=== PATIENT | male | born 1985 | race Caucasian/White ===

== ENCOUNTER 2020-06-04 16:54 | Emergency (ER) | payer OTHER, SELFPAY ==
[2020-06-04 17:06] VITALS: BP 129/73; PULSE 90; RESP 18; TEMP 36.7; O2SAT 96
[2020-06-04 17:33] VITALS: BP 124/87; PULSE 85; RESP 18; TEMP 37.2; O2SAT 95; BMI 31.3
--- NOTE | 2020-06-04 17:44 | ED_ITS ---
HPI - General Adult General Chief complaint: General Medical Stated complaint: SOB Time Seen by Provider: 06/04/20 17:44 History of Present Illness HPI narrative: Patient who was recently diagnosed with COVID and multiple family members in his household with COVID complains of worsening cough and mild shortness of breath as well as fatigue and body aches for 4 days Related Data Previous Rx's Medication Instructions Recorded azithromycin [Zithromax Z-Gerardo] 250 mg PO DAILY 5 Days #5 tab 06/04/20 dexamethasone [Decadron] 6 mg PO DAILY 5 Days #5 tab 06/04/20 Allergies Allergy/AdvReac Type Severity Reaction Status Date / Time No Known Allergies Allergy Verified 06/04/20 18:02 Review of Systems Review of Systems: Positive for mild cough, body aches, fatigue, shortness of breath There is no fever no chills no dizziness no weakness no confusion no neck pain no headache no chest pain no abdominal pain no nausea no vomiting no diarrhea no skin rash no numbness or weakness Yes all other systems are reviewed and are negative PMFSH Past Medical History Source: nursing notes reviewed Social History Social History Advance Directives: No Advance Directives Information Provided: No Physical Exam Vital Signs: Vital Signs: Last Vital Signs Temp 99.0 F 06/04/20 17:33 Pulse 85 06/04/20 17:33 Resp 18 06/04/20 17:33 BP 124/87 06/04/20 17:33 Pulse Ox 95 06/04/20 17:33 Body Mass Index 31.3 Patient is comfortable appearing, a and O x3, no acute distress cooperative speaks full sentences The pharynx is clear and well hydrated The neck is supple There is no respiratory distress, the chest is clear to auscultation bilaterally with full symmetric equal breath sounds no wheezing The heart rate and rhythm regular no murmur Abdomen soft nontender Extremities full range of motion x4, no rashes Neuro no focal deficit Course Course Course Narrative: X-ray showed patchy reticular opacities in both lungs, most likely viral but possible early atypical pneumonia so patient was put on antibiotic as well as Decadron Patient remains comfortable speaking full sentences no evidence of any respirato ry distress throughout ER visit Discharge Plan Discharge Clinical Impression: COVID-19 Patient Disposition: Home, Self-Care Additional Instructions: Testing showed you had COVID illness X-ray had typical findings of COVID We are starting an antibiotic in case there could be an early pneumonia We started Decadron which is a steroid which may reduce lung inflammation and prevent worsening of illness What might help the shortness of breath feeling the most is COVID breathing exercises Go to youtube and enter COVID breathing exercise, follow the directions in the video I showed you and this often times will bring some relief to the shortness of breath and enable you to breathe more comfortable Tylenol or Motrin for any fever or aches and pains Return to the ER any time for worsening shortness of breath or any worse condition or concerns Prescriptions: New azithromycin [Zithromax Z-Gerardo] 250 mg tablet 250 mg PO DAILY 5 Days Qty: 5 RF: 0 dexamethasone [Decadron] 6 mg tablet 6 mg PO DAILY 5 Days Qty: 5 RF: 0 Stand Alone Forms: Work/School Release Interventions: ED Discharge Assessment Last Done: 06/04/20 19:29 Discharge Date/Time: 06/04/20 19:29
--- NOTE | 2020-06-04 18:02 | XR_ITS ---
EXAMINATION: XR CHEST CLINICAL INFORMATION: Correlate. Cough. COMPARISON: None TECHNIQUE: Frontal view of the chest was obtained. FINDINGS: The lungs are hypoexpanded with patchy reticular opacities in both lung bases. The heart size and pulmonary vascularity is normal. No gross bony abnormality seen. XR/XR chest 1V IMPRESSION: Patchy reticular opacities in both lung bases. No acute process seen.
[2020-06-04] MEDS: dexAMETHasone 2 MG TABLET 10 MG PO (19:28)
== END 2020-06-04 19:29 | disposition home or self-care (01) ==
PROVIDERS: Emergency Provider Internal Medicine
DX: U07.1 COVID-19 (principal); R06.02 Shortness of breath; Z79.899 Other long term (current) drug therapy
CPT/HCPCS: 71045; 99283; J8540

== ENCOUNTER 2022-11-24 08:18 | Emergency (ER) | payer OTHER, SELFPAY ==
--- NOTE | ~2022-11-24 | XR_ITS ---
EXAMINATION: Left lower leg and ankle x-ray CLINICAL INFORMATION: Injury COMPARISON: None. TECHNIQUE: 2 views of the left lower leg and 3 views of the left ankle FINDINGS: Left lower leg: Bone alignment is normal. No fracture or dislocation. Normal joint spaces. Normal soft tissues. Left ankle: Bone alignment is normal. No fracture or dislocation. Normal ankle mortise. Normal soft tissues. Small calcaneal spur at the Achilles tendon insertion. XR/XR tibia fibula LT 2V IMPRESSION: No fracture or dislocation.
--- NOTE | ~2022-11-24 | XR_ITS ---
EXAMINATION: Left lower leg and ankle x-ray CLINICAL INFORMATION: Injury COMPARISON: None. TECHNIQUE: 2 views of the left lower leg and 3 views of the left ankle FINDINGS: Left lower leg: Bone alignment is normal. No fracture or dislocation. Normal joint spaces. Normal soft tissues. Left ankle: Bone alignment is normal. No fracture or dislocation. Normal ankle mortise. Normal soft tissues. Small calcaneal spur at the Achilles tendon insertion. XR/XR ankle LT 2V IMPRESSION: No fracture or dislocation.
[2022-11-24 08:45] VITALS: BP 96/63; PULSE 85; RESP 18; TEMP 36.8; O2SAT 98; BMI 33.9
[2022-11-24] MEDS: Ibuprofen 600 MG TABLET PO (09:02)
--- NOTE | 2022-11-24 09:29 | ED.LOWEXIN ---
HPI - Extremity Injury (Lower) General Chief Complaint: Extremity Injury, Lower Stated Complaint: Left ankle injury severe pain Time Seen by Provider: 11/24/22 09:08 History of Present Illness HPI Narrative: Patient is a 28-year-old male was playing basketball subsequently twisted and turned. Complaining of pain to the distal tib-fib area. No systemic complaints. No head injury. Not on blood thinners. Related Data Previous Rx's Medication Instructions Recorded azithromycin 250 mg tablet 250 mg PO DAILY 5 days #5 tabs 06/04/20 (Zithromax Z-Gerardo) dexamethasone 6 mg tablet 6 mg PO DAILY 5 days #5 tabs 06/04/20 (Decadron) ibuprofen 400 mg tablet 400 mg PO Q6H PRN pain #20 tabs 11/24/22 oxycodone 5 mg tablet 5 mg PO Q8H PRN pain #7 tabs 11/24/22 Allergies Allergy/AdvReac Type Severity Reaction Status Date / Time No Known Allergies Allergy Verified 11/24/22 08:45 Review of Systems Review of Systems: Positive pain to the left ankle/tib-fib Armando Yes all other systems are reviewed and are negative [facility] Past Medical History Attestation statement: The following information was validated with the patient. Social History Social History Advance Directives: No Advance Directives Information Provided: Yes Physical Exam Vital Signs: Vital Signs: Last Vital Signs Temp 98.3 F 11/24/22 08:45 Pulse 66 11/24/22 09:30 Resp 18 11/24/22 09:30 BP 98/66 11/24/22 09:30 Pulse Ox 98 11/24/22 09:30 O2 Del Method Room Air 11/24/22 09:30 BMI result Body Mass Index 33.9 Appearance: Alert. Oriented X3. No acute distress. Eyes: Pupils equal, round and reactive to light. ENT: Pharynx normal. Neck: Normal inspection. Neck supple. No lymph nodes noted. No crepitus CVS: Normal heart rate and rhythm. Pulses normal. Normal S1 and S2 Respiratory: No respiratory distress. Breath sounds normal. No Wheezing. No rales Abdomen: Soft and nontender. No rigidity. No distention. good BS x4 Skin: Skin warm and dry. Normal skin color. Normal skin turgor. Extremities: No lower extremity edema. Neurovascular intact to all extremities. No Lacerations. No Rash. There is no pain on palpation of the left medial or lateral malleolus. No pain on palpation of the base of the 5th metatarsal. There is pain on palpation of the distal gastrectomy medius/Achilles tendon. Pain on plantar flexion. There is good pulses at dorsalis pedis. Sensation over the foot intact. Capillary refill less than 2nd Neuro: Oriented X 3. No motor deficit. No sensory deficit. Moving all extermities. No slurred speech Medications Administered Discontinued Medications Generic Name Dose Route Start Last Admin Trade Name Freq PRN Reason Stop Dose Admin Ibuprofen 600 mg 11/24/22 08:55 11/24/22 09:02 Ibuprofen 600 Mg Tablet PO 11/24/22 08:56 600 mg ONCE ONE Administration Medical Decision Making Medical Decision Making MDM Narrative: X-rays of patient's ankle and tib-fib were both negative. Cannot exclude the possibility of an Achilles tendon injury. Patient has pain on plantar flexion. Will splint. Will have patient follow-up with orthopedic on an outpatient basis. There is no evidence of insert brain ankle. There is no medial lateral collateral ligament tenderness. There is no pain at the base of the 5th metatarsal. There is no difficulty with movement at the ankle. Patient's incident happened during a basketball game. He is currently in stable condition. Will give pain medication. If Differential Diagnosis Differential Diagnoses: The differential diagnosis associated with the presentation includes Sprained ankle, fracture, Achilles injury Independent Interpretation I performed an independent interpretation of an: Plain X-Ray Interpretation: Ankle and tib-fib x-rays are negative Radiology Impression Discussion of test interpretation with radiology: I have reviewed the radiologist's reading. Prescription Management I considered prescription management with: Pain Medication Discharge Plan Discharge Clinical Impression: Achilles rupture, left Patient Disposition: Home, Self-Care Instructions: Achilles Tendinitis (ED), Splint Care (ED), Crutch Instructions (ED) Prescriptions: New ibuprofen 400 mg tablet 400 mg PO Q6H PRN (Reason: pain) Qty: 20 0RF oxycodone 5 mg tablet 5 mg PO Q8H PRN (Reason: pain) Qty: 7 0RF Rx Instructions: Partial Fill upon patient request. No Action azithromycin [Zithromax Z-Gerardo] 250 mg tablet 250 mg PO DAILY 5 Days Qty: 5 0RF dexamethasone [Decadron] 6 mg tablet 6 mg PO DAILY 5 Days Qty: 5 0RF Referrals: Xiang Arzola MD [Physician] - 11/26/22 Stand Alone Forms: Work/School Release
[2022-11-24 09:30] VITALS: BP 98/66; PULSE 66; RESP 18; O2SAT 98
== END 2022-11-24 10:05 | disposition home or self-care (01) ==
PROVIDERS: Emergency Provider Emergency Medicine Emergency Medical Services
DX: M76.62 Achilles tendinitis, left leg (principal); M25.572 Pain in left ankle and joints of left foot
CPT/HCPCS: 73590; 73600; 99283; 99284